=== PATIENT | female | born 1990 | race Caucasian/White ===

== ENCOUNTER 2024-11-27 11:05 | Emergency (ER) | payer OTHER ==
[~2024-11-27] VITALS: Ht 167.6 cm; Wt 59.0 kg
[2024-11-27 11:12] VITALS: O2SAT 100
[2024-11-27] MEDS: ONDANSETRON 4MG ODT PO ONE (12:02)
[2024-11-27] MEDS ORDERED: ONDA4TAB50 MT (13:08)
[2024-11-27] MEDS ORDERED: ACETAMINOPHEN 500MG TABLET PO NR (13:15)
[2024-11-27 13:17] VITALS: BP 129/80; PULSE 74; RESP 16; TEMP 37.2; O2SAT 100
== END 2024-11-27 13:21 | disposition home or self-care (01) ==
LOC: ER 11:05
DX: B34.9 Viral infection, unspecified (principal); Z59.00 Homelessness unspecified
CPT/HCPCS: 99283; Q0162